=== PATIENT | male | born 1970 | race Caucasian/White ===

== ENCOUNTER 2020-12-28 08:38 | Inpatient (IN) | payer BC, SELFPAY ==
[2020-12-28] VITALS (35 sets, daily range): BP systolic 86–124; BP diastolic 57–86; PULSE 46–81; RESP 6–20; TEMP 36.8; O2SAT 94–98; BMI 22.4
--- NOTE | 2020-12-28 08:42 | ED_ITS ---
HPI - General Adult General: Chief complaint: Arrhythmia/Palpitations Stated complaint: POSSIBLE STEMI Time Seen by Provider: 12/28/20 08:41 History of Present Illness: HPI narrative: CC: Chest Pain HPI: This is a [50] yo patient hx of HTN, smoking, hyperthyroidism BIBA to the ED w/ acute onset crushing substernal chest pain x 2 hours w En route, HDS, field ECG showed inferior STEMI. Onset: 2 hrs ago Duration: ongoing for the last 2 hrs Location: home Severity: severe Review of Systems Narrative: Constitutional: No fever, no chills. HEENT: No vision changes, no sore throat. CV: +chest pain, no palpitations. PULM: No cough, -dyspnea. GI: No abdominal pain, +N/+V/D. : No dysuria, no frequency, no hematuria. MSKEL: No arthralgias, no edema. SKIN: No new rashes, no lesions. NEURO: No headache, no focal weakness. HEME: No easy bleeding or bruising. PSYCH: No change in mood or affect. PFS ED PFSH: Medical History CLL (chronic lymphocytic leukemia) Hypertension Hypothyroidism Family History Other CAD (coronary artery disease) Social History Smoking and tobacco status: current every day smoker Physical Exam Narrative: EXAM NARRATIVE: Head: Atraumatic, normocephalic Eyes: PERRL, EOMI, conjunctiva without injection ENT: Throat without erythema, lesions or exudate, MMM NECK: Supple, trachea midline, no JVD LUNGS: LCTA CV: RRR, S1,S2, no murmurs, rubs, gallops. 2+ peripheral pulses in UEs ABDOMEN: Soft, nontender, nondistended, BS x4, no rigidity, no guarding, no rebound EXTREMITY: Normal ROM, no pitting edema, no calf tenderness to palpation SKIN: No rash or erythema NEURO: Awake and alert. No focal motor deficits. PSYCH: Normal mood and affect. Course Vital Signs: Vital signs: Vital Signs Temperature 98.5 F 12/29/20 04:34 Pulse Rate 56 L 12/29/20 05:15 Respiratory Rate 18 12/29/20 04:34 Blood Pressure 100/67 12/29/20 04:34 Pulse Oximetry 97 12/28/20 17:53 MDM - General Adult MDM Narrative: Medical decision making narrative: [50]yo pt w/ extensive cardiac hx BIBA for active chest pain with field EKG for STEMI in the inferiorposterior distributions. Pt received ASA 325mg and 3 dose of nitro SL en route. Repeat ECG in the ED showed ARTUR in the 2/3/aVF distributions with reciprocal changes. Patient was otherwise in their normal state of health before this chest pain rapidly ensued. Given history and exam I have a lower suspicion for TAA or dissection because no tearing chest pain, bounding bilateral UE pulses, and patient is neurologically intact. I have no suspicion for PE or dissection because hx and exam are more consistent with STEMI and no signs of right axis with ARTUR findings on ECG. Pending: CBC, BMP, troponin, PT/INR. Will obtain repeat EKGs until clinical laboratory service teacher, CXR. [8:42am] Initial ECG showed ARTUR in the distribution of 2/3/avF with reciprocal changes. [8:45am] Case and EKG discussed with Cardiology provider Dr. Brown who agrees that this is a STEMI. Intervention: S/p ASA and 3 SL nitro en route, 600mg plavix, and heparin bolus 60U/kg followed by 12U/kg/h gtt. [8:45am] Cardiology team evaluated the patient at bedside with plans for emergent PCI. Patient is NPO Disposition: Device Test Engineer Lab Data: Labs: Lab Results 12/28/20 12/28/20 12/28/20 Range/Units 08:45 08:45 08:45 WBC 36.5 H* (4.0-10.0) 10^3/ uL RBC 4.76 (4.1-5.3) 10^6/u L Hgb 15.0 (11.7-16.6) g/dL Hct 43.1 (42.0-52.0) % MCV 90.5 (80-94) fl MCH 31.5 (28.0-34.0) pg MCHC 34.8 (30.0-36.0) g/dL RDW 13.2 (12.1-15.1) % Plt Count 173 (130-400) 10^3/c mm MPV 9.8 (7.4-10.4) fL Neut % (Auto) 17.2 % Lymph % (Auto) 80.7 % Holmes % (Auto) 1.4 % Eos % (Auto) 0.1 % Baso % (Auto) 0.3 % Neut # (Auto) 6.28 (1.8-7.7) 10^3/u L Lymph # (Auto) 29.5 H (0.8-4.8) 10^3/u L Holmes # (Auto) 0.5 (0.2-0.9) 10^3/u L Eos # (Auto) 0.1 (0.0-0.8) 10^3/u L Baso # (Auto) 0.1 (0.0-0.1) 10^3/u L Nucleated RBC % (a uto) 0 % Nucleated RBCs # 0.0 /100WBC PT 12.40 (12.1-14.9) SECO NDS INR 0.89 (0.8-1.2) APTT 26.8 (23.9-36.7) SECO NDS Sodium 140 (136-145) mmol/L Potassium 3.7 (3.5-5.1) mmol/L Chloride 102 (98-107) mmol/L Carbon Dioxide 30 H (22-29) mmol/L Anion Gap 11.7 (5-19) BUN 9 (6-20) mg/dL Creatinine 1.0 (0.7-1.2) mg/dL GFR Calculation 78.5 L (90-130) mL/min Glucose 129 H (65-115) mg/dL Calculated Osmolal ity 290 (285-295) mOsm/k g Calcium 9.0 (8.5-10.5) mg/dL Troponin T Baselin e (0-15) ng/L 12/28/20 12/28/20 Range/Units 08:45 16:27 WBC 23.8 H (4.0-10.0) 10^3/ uL RBC 4.28 (4.1-5.3) 10^6/u L Hgb 13.6 (11.7-16.6) g/dL Hct 38.8 L (42.0-52.0) % MCV 90.7 (80-94) fl MCH 31.8 (28.0-34.0) pg MCHC 35.1 (30.0-36.0) g/dL RDW 13.4 (12.1-15.1) % Plt Count 144 (130-400) 10^3/c mm MPV 9.9 (7.4-10.4) fL Neut % (Auto) 18.9 % Lymph % (Auto) 77.1 % Holmes % (Auto) 3.1 % Eos % (Auto) 0.3 % Baso % (Auto) 0.4 % Neut # (Auto) 4.55 (1.8-7.7) 10^3/u L Lymph # (Auto) 18.4 H (0.8-4.8) 10^3/u L Holmes # (Auto) 0.7 (0.2-0.9) 10^3/u L Eos # (Auto) 0.1 (0.0-0.8) 10^3/u L Baso # (Auto) 0.1 (0.0-0.1) 10^3/u L Nucleated RBC % (a uto) 0 % Nucleated RBCs # 0.0 /100WBC PT (12.1-14.9) SECO NDS INR (0.8-1.2) APTT (23.9-36.7) SECO NDS Sodium (136-145) mmol/L Potassium (3.5-5.1) mmol/L Chloride (98-107) mmol/L Carbon Dioxide (22-29) mmol/L Anion Gap (5-19) BUN (6-20) mg/dL Creatinine (0.7-1.2) mg/dL GFR Calculation (90-130) mL/min Glucose (65-115) mg/dL Calculated Osmolal ity (285-295) mOsm/k g Calcium (8.5-10.5) mg/dL Troponin T Baselin e 15 (0-15) ng/L Discharge Plan Discharge Patient Disposition: Admitted As Inpatient Admit Provider: Curt Brown Clinical Impression: ST elevation (STEMI) myocardial infarction Condition: Stable Coding Level of Care Code ED Management Consulting for Ramesh Tesfaye
--- NOTE | 2020-12-28 08:45 | ECG_ITS ---
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 Measurements Intervals [place] Rate: 54 P: 61 MD: 188 QRS: 32 QRSD: 89 T: 82 QT: 395 QTc: 377 Interpretive Statements SINUS BRADYCARDIA WITH SINUS ARRHYTHMIA ST ELEVATION, CONSIDER INFERIOR INJURY [MARKED ST ELEVATION W/O NORMALLY INFLECTED T-WAVE IN II/aVF] ACUTE MD No previous ECG available for comparison Electronically Signed On 12-28-2020 13:06:04 CDT by Benedicto Molina M.D. [id number]
[2020-12-28] MEDS: clopidogrel 300 mg Tablet 600 MG PO (08:52)
[2020-12-28] MEDS: heparin 5,000 unit/mL INJ 1 mL 4000 UNIT IVP (08:52)
--- NOTE | 2020-12-28 09:00 | XACV_ITS ---
Ht: 183 cm Wt: 75 kg BSA: 1.95 m2 Gender: Male : 1970 Any Known Allergies: No known allergies Exam Priority: Routine Procedure(s): Procedure Description: Diagnostic procedure Procedure Description: PCI procedure Procedure Description: Drug Eluting Coronary Stent Procedure Description: PTCA Procedure Description: Coronary Angiography Diagnostic Cath Status: Emergency Diagnostic Findings * Left Anterior Descending has mild diffuse luminal irregularities. No obstructive disease is seen. * Mid Right Coronary Artery to Distal Right Coronary Artery: total thrombotic occlusion, ANTHONY: 0 flow. This is the culprit vessel for acute ST elevation RI. * 1st Diagonal: obstructive 70% stenosis, ANTHONY: 3 flow. Small sized vessel.. * Left Main has no disease. * Circumflex has no disease. * Coronary angiography shows right dominance. PCI Status: Emergency PCI Indication: Immediate PCI for STEMI Interventional Findings * Procedure detail: Procedure details: We engaged RCA with a JR4 guide catheter. IV heparin was administered to maintain an ACT above 250 seconds. A 0.014 run-through guidewire was used to cross the stenosis and was placed in PLV branch. 2.75 x 12 mm semicompliant balloon was used to predilate the stenosis in the mid RCA. This was followed by placement of 4.0 x 30 mm resolute [place] drug-eluting stent. At the distal edge of the stent, there was still some haziness.we placed a second stent that was 3.5 x 12 mm resolute [place] stent overlapping with the first stent. At this time final angiogram was performed that showed excellent stent expansion, ANTHONY-3 flow and no residual stenosis. Guidewire and guide catheter were removed. Patient left the Disability Advocate in a stable condition. . * Mid Right Coronary Artery to Distal Right Coronary Artery: 100% stenosis treated with a AB TREK 2.75X12 RX BALLOON, MDT R KORINA 4.0X30 CAR, and MDT R KORINA 3.5X12 CAR. 0% residual stenosis, ANTHONY: 3 flow. Conclusions 1. There is total thrombotic occlusion of mid RCA status post successful revascularization with CAR x2.. 2. Diagonal artery has 70% stenosis however it is a small sized vessel that will be managed medically. 3. Mid Right Coronary Artery to Distal Right Coronary Artery was treated with a Balloon, Drug Eluting Stent, and Drug Eluting Stent. Recommendations * Transferred to CSU. * Aspirin and Plavix for at least 1 year. * High intensity statin therapy. * Order echocardiogram. * Order beta-natasha and lisinopril. * Outpatient cardiology follow-up in 4 weeks. Interventional RX Recommendation: PCI w/o planned CABG Diagnostic RX Recommendation: PCI w/o planned CABG Anticoagulation: Heparin Pressures Phase:Rest AO : 117 / 69 ( 88 ) @ 8:08:00 AM 102 / 68 ( 82 ) @ 8:16:00 AM 97 / 61 ( 76 ) @ 8:17:00 AM 71 / 45 ( 59 ) @ 8:19:00 AM 74 / 57 ( 65 ) @ 8:20:00 AM 63 / 42 ( 56 ) @ 8:24:00 AM 78 / 59 ( 68 ) @ 8:24:00 AM 66 / 44 ( 53 ) @ 8:30:00 AM Clinical Evaluation EBL: 5mL-10mL Procedural Details Pre-Procedure Time Out. Identified patient by full name and date of as verbalized by the patient/guarantor. Does the consent match the physician's order: N/A Emergent. Accurate & Complete Informed Consent: N/A Emergent. Inpatient/Outpatient History & Physical on Chart: N/A Emergent. If H&P is completed, is and addenduem needed: N/A Emergent; If yes, is the addendum complete: N/A Emergent. Visualize and Verify Site with Patient/Guarantor: N/A. Relevant Radiology Images available: N/A Emergent. Pre-op teaching completed and patient verbalized understanding. The risks, benefits, and alternatives of sedation and/or procedure were discussed by physician. The patient agrees to continue. Procedure started. [facility] Clinical Fraility Score: 3: Managing Well. Disability Advocate Indications: ACS <= 24 hours. Chest Pain Symptom Assessment: Typical Angina Symptoms. Correct patient, site and procedure confirmed by cath team. Current diagnosis: STEMI. PERRLA. Strong, equal hand internal control analyst bilaterally. Lungs clear x 5 lobes. IV Site on Arrival: 18 gauge in the left anticubital. IV Fluids: 0.9% NaCl at KVO. 0 mL infused prior to laboratory apparatus glass grinder. Oxygen started at 2liters/min via nasal canula. right groin was prepped with chloroprep then draped in the usual sterile fashion. right radial was prepped with chloroprep then draped in the usual sterile fashion. Physician notified. Baseline sample Acquired. HR: 62 BPM. Physician arrived. Physician scrubbed in. Immediate Pre-Procedure Time Out. Correct Patient: N/A Emergent; Correct Procedure: N/A Emergent; Correct Site: N/A Emergent; Correct Patient Position: N/A Emergent; Correct Supplies: N/A Emergent; Dried Flammable Prep: N/A Emergent; Blood Products Available: N/A Emergent;. Lidocaine 1% infiltrated to the right radial. Arterial access obtained. A 5 indonesian TIG catheter in over wire. Current Diagnosis : STEMI. Multiple views taken of left coronary artery. Catheter redirected to the RCA. Multiple views taken of right coronary artery. Catheter removed over the exchange wire. AP Pads placed on the patient. PCI Indication: STEMI. 6 indonesian JR 4 guide catheter was inserted over the wire. Runthrough guidewire was advanced through the guide catheter to lesion in the mid RCA. Inflation number : 1 A AB TREK 2.75X12 RX BALLOON was prepped and advanced across the Mid RCA , then inflated to 12 ESTELLE for 0:21 seconds. Inflation number: 2 The AB TREK 2.75X12 RX BALLOON was reinflated across the Mid RCA, to 12 ESTELLE for 0:16 seconds. Balloon out. Inflation Number : 3 A MILTON Cohen KORINA 4.0X30 CAR -Lot Number# _[id number] Exp: 05/15/2021 was prepped and advanced across the Mid RCA. The stent was deployed at 12 ESTELLE for 0:15 seconds. Stent balloon out over wire. Results checked. Wire out. PCI Indication: STEMI. PCI Indication : Immediate PCI for STEMI. Runthrough guidewire was advanced through the guide catheter to lesion in the mid RCA. Inflation Number : 4 A MILTON HUI 3.5X12 CAR -Lot Number# _[id number] EXP: 03/30/2022 was prepped and advanced across the Mid RCA. The stent was deployed at 12 ESTELLE for 0:20 seconds. Inflation number: 5 The stent balloon was then re-inflated across the Mid RCA to 14 ESTELLE for 0:14 seconds. Stent balloon out over wire. Results checked. Wire out. Guide catheter out. TR band placed. Hemostasis obtained. A TR Band was successful obtaining hemostatsis at the Right Radial artery insertion site. Post Procedure: Pulses reassessed and unchanged. PERRLA. Strong, equal hand internal control analyst bilaterally. No VTE prophylaxis required. Medication's Wasted: Lidocaine 1% = 18 mL. Medication's Wasted: Other = Versed 0.5 mg. Medication's Wasted: Other = Fentanyl 25 mcg. Medication's Wasted: Heparin = 1000 units. Total IV fluids: 325 mL. Contrast type used: Omnipaque 300 mgI/mL, 500 mL bottle. Post-op diagnosis: CAD. Complications: None. Estimated blood loss: 5mL-10mL. Procedure completed. Patient transferred by wheelchair to CPRU. Vital chart was stopped. Access Site Site: Right Radial artery Sheath Size: 6 Fr Hemostasis Method: TR Band Hemostasis Success: Successful Procedure Medications Start: 9:06 AM Stop: 9:06 AM Medication: Versed Amount: 1 mg Route: I.V. Start: 9:06 AM Stop: 9:06 AM Medication: Fentanyl Amount: 50 mcg Route: I.V. Start: 9:06 AM Stop: 9:06 AM Medication: 0.9% Saline Amount: 250 ml Route: I.V. bolus Start: 9:07 AM Stop: 9:07 AM Medication: Heparin Amount: 5000 units Route: I.V. Start: 9:14 AM Stop: 9:14 AM Medication: Aggrastat 12.5 mg/250 mL Amount: 38 ml Route: I.V. bolus Start: 9:14 AM Stop: 9:14 AM Medication: Aggrastat 12.5 mg/250 mL Amount: 13.7 ml/hr Route: I.V. drip Start: 9:21 AM Stop: 9:21 AM Medication: Versed Amount: 0.5 mg Route: I.V. Start: 9:24 AM Stop: 9:24 AM Medication: Fentanyl Amount: 25 mcg Route: I.V. Start: 9:29 AM Stop: 9:29 AM Medication: Levophed (norepinephrine) Amount: 4 mcg/min Route: I.V. drip Gregory, the attending physician, have reviewed and verified all procedure medications. Yes, all medications given per verbal order History/Risk Factors Hypertension: Yes Peripheral Arterial Disease (PAD): No Myocardial Infarction (RI): No Obesity: No Renal Disease: No Tobacco Use: Current/Recent(w/in 1 year) Prior Interventions PCI: No CABG: No Valve Surgery: No Report Signatures Finalized by Curt Brown MD on 01/05/2021 05:45 PM
[2020-12-28 09:01] LABS: Basophils # 0.1 10^3/uL (0.0-0.1); Basophils % 0.3 %; Eosinophils # 0.1 10^3/uL (0.0-0.8); Eosinophils % 0.1 %; Hematocrit 43.1 % (42.0-52.0); Lymphocytes # 29.5 10^3/uL (0.8-4.8); Lymphocytes % 80.7 %; Mean Corpuscular HGB Conc 34.8 g/dL (30.0-36.0); Mean Corpuscular Hemoglobin 31.5 pg (28.0-34.0); Mean Corpuscular Volume 90.5 fl (80-94); Mean Platelet Volume 9.8 fL (7.4-10.4); Monocytes # 0.5 10^3/uL (0.2-0.9); Monocytes % 1.4 %; Neutrophils # 6.28 10^3/uL (1.8-7.7); Neutrophils % 17.2 %; Nucleated Red Blood Cells % 0 %; Platelet Count 173 10^3/cmm (130-400); Red Blood Count 4.76 10^6/uL (4.1-5.3); Red Cell Distribution Width 13.2 % (12.1-15.1)
[2020-12-28 09:12] LABS: Anion Gap 11.7 (5-19); Blood Urea Nitrogen 9 mg/dL (6-20); Carbon Dioxide 30 mmol/L (22-29); Chloride 102 mmol/L (98-107); Glomerular Filtration Rate 78.5 mL/min (90-130); Glucose 129 mg/dL (65-115); INR 0.89 (0.8-1.2); Osmolality Calculated 290 mOsm/kg (285-295); Partial Thromboplastin Time 26.8 SECONDS (23.9-36.7); Potassium 3.7 mmol/L (3.5-5.1); Sodium 140 mmol/L (136-145)
[2020-12-28 09:14] LABS: Troponin(5th) Baseline 15 ng/L (0-15)
[2020-12-28 09:47] LABS: Slide Review Slide Review Perform; White Blood Count 36.5 10^3/uL (4.0-10.0)
--- NOTE | 2020-12-28 10:08 | PC.NURSE ---
Critical WBC Critical WBC of 36.[address] Brown at this time. Orders received to recheck CBC in 4 hours.
--- NOTE | 2020-12-28 10:25 | PM.HP ---
Providers/Chief Complaint Admitting Physician: Curt Brown MD Chief Complaint: POSSIBLE STEMI History of Present Illness Ludwin Red is a 50 year old male with past medical history of hypertension, hypothyroidism and CLL(not on treatment as his stable) presented with 2 hours of severe substernal crushing chest pain. It was radiating to the arms. His EKG showed ST elevations in the inferior leads with reciprocal changes lateral leads. Posterior wall involvement was also present. STEMI alert was called and patient was emergently taken to the [facility]. Coronary angiogram demonstrated total thrombotic occlusion of the mid RCA. It was a large vessel. He underwent successful revascularization with CAR x2. He has a small sized diagonal artery with significant 70 to 80% stenosis in it. Review of Systems Narrative: Constitutional: No fever, no chills. HEENT: No vision changes, no sore throat. Cardiovascular: Has chest pain, no shortness of breath PULM: No cough, -dyspnea. GI: No abdominal pain, +N/+V/D. : No dysuria, no frequency, no hematuria. MSKEL: No arthralgias, no edema. SKIN: No new rashes, no lesions. NEURO: No headache, no focal weakness. HEME: No easy bleeding or bruising. PSYCH: No change in mood or affect. Medications/Allergies Allergies Allergy/AdvReac Type Severity Reaction Status Date / Time No Known Allergies Allergy Verified 12/28/20 08:54 PFSH Acute PFSH: Medical History CLL (chronic lymphocytic leukemia) Hypertension Hypothyroidism Family History Other CAD (coronary artery disease) Social History Smoking and tobacco status: current every day smoker Vitals/I&O/Wt Last Vital Signs Temp 98.2 F 12/28/20 08:43 Pulse 81 12/28/20 10:15 Resp 15 12/28/20 10:15 BP 92/71 12/28/20 10:15 Pulse Ox 98 12/28/20 10:15 Weight last 48 hrs Weight 165 lb Physical Exam Narrative: EXAM NARRATIVE: GENERAL: Patient is alert, awake and oriented x3. [] NECK: No jugular vein distension. [] HEENT: No cyanosis. No icterus. No pallor. [] HEART: Regular S1 and S2. No murmur, rub or gallop. [] LUNGS: Clear to auscultate bilaterally. [] ABDOMEN: Soft, nontender and nondistended. Positive bowel sounds. No guarding, rebound or tenderness. [] CENTRAL NERVOUS SYSTEM: Grossly nonfocal. [] EXTREMITIES: Lower extremities with no edema bilaterally. Pulses palpable in the lower extremities, both dorsalis pedis and posterior tibial. [] Data : 12/28/20 08:45 12/28/20 08:45 A&P Assessment and plan (1) ST elevation (STEMI) myocardial infarction: Status: Acute (2) Hypertension: Status: Acute (3) Hypothyroidism: Status: Acute (4) CLL (chronic lymphocytic leukemia): Status: Acute Patient presented with inferior ST elevation SD with posterior involvement. Coronary angiogram revealed total occlusion of mid RCA. He underwent successful revascularization with CAR x2. He briefly required Levophed as well as hypotensive. Given IV fluids as well. Continue aspirin Plavix for at least 1 year. High intensity statin therapy. Beta-natasha and lisinopril. Patient has CLL and WBC count is 36,000. However patient says that his WBC count has stayed in 30,000 since her diagnosis 2 years ago but stable. Not on any treatment for that. Will start levothyroxine at his home dose of 100 mcg. Order echocardiogram. Attestations Medical Necessity Statement*: Care expected to cross 2 midnights. Patient has presented with acute inferior wall ST elevation SD and is status post revascularization of RCA with CAR x2. Coding Level of Care Code Acute Employee Development Specialist for Ramesh Tesfaye Diagnoses ST elevation (STEMI) myocardial infarction I21.3 Hypertension I10 Hypothyroidism E03.9 CLL (chronic lymphocytic leukemia) C91.10
--- NOTE | 2020-12-28 11:55 | PC.NURSE ---
TR band deflation started.
--- NOTE | 2020-12-28 12:18 | PC.NURSE ---
Patient ambulated himself to the bathroom. No dizziness, shortness of breath, or discomfort reported.
--- NOTE | 2020-12-28 12:25 | PC.NURSE ---
Patient given lunch.
--- NOTE | 2020-12-28 12:54 | PC.NURSE ---
TR band deflation complete. No swelling or bleeding noted. The patient tolerated the process well.
--- NOTE | 2020-12-28 14:45 | ECG_ITS ---
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 Measurements Intervals [place] Rate: 55 P: 55 VA: 174 QRS: -31 QRSD: 94 T: -15 QT: 413 QTc: 395 Interpretive Statements SINUS BRADYCARDIA LEFT AXIS DEVIATION [QRS AXIS < -30] INFERIOR MYOCARDIAL INFARCTION , OF INDETERMINATE AGE [40+ ms Q WAVE AND/OR ST/T ABNORMALITY IN II/aVF] Compared to ECG 12/28/2020 08:42:02 Left-axis deviation now present Sinus arrhythmia no longer present ST (T wave) deviation no longer present Myocardial infarct finding still present Electronically Signed On 12-28-2020 18:02:39 CDT by Curt Brown M.D. [id number]
--- NOTE | 2020-12-28 16:28 | PC.NURSE ---
Dr. Brown at bedside.
[2020-12-28 17:03] LABS: Basophils # 0.1 10^3/uL (0.0-0.1); Basophils % 0.4 %; Eosinophils # 0.1 10^3/uL (0.0-0.8); Eosinophils % 0.3 %; Hematocrit 38.8 % (42.0-52.0); Hemoglobin 13.6 g/dL (11.7-16.6); Lymphocytes # 18.4 10^3/uL (0.8-4.8); Lymphocytes % 77.1 %; Mean Corpuscular HGB Conc 35.1 g/dL (30.0-36.0); Mean Corpuscular Hemoglobin 31.8 pg (28.0-34.0); Mean Corpuscular Volume 90.7 fl (80-94); Mean Platelet Volume 9.9 fL (7.4-10.4); Monocytes # 0.7 10^3/uL (0.2-0.9); Monocytes % 3.1 %; Neutrophils # 4.55 10^3/uL (1.8-7.7); Neutrophils % 18.9 %; Nucleated Red Blood Cells % 0 %; Platelet Count 144 10^3/cmm (130-400); Red Blood Count 4.28 10^6/uL (4.1-5.3); Red Cell Distribution Width 13.4 % (12.1-15.1); White Blood Count 23.8 10^3/uL (4.0-10.0)
--- NOTE | 2020-12-28 18:19 | PC.NURSE ---
Received patient from cathode washer, VS WN. Patient denies any CP or SOB. R Radial site w/o hematoma, pulses palpable. Pt running SB with PVC's 54 on telemetry. Report called to [facility] CSU. Pt wheeled down to CSU in stable condition.
--- NOTE | 2020-12-28 18:38 | PC.NURSE ---
Admit Note Patient admitted to [facility] from [facility] via wheelchair. Covering service notified. Patient presents with post STEMI with PCI. Orders reviewed & will continue to monitor. Patient and/or sales utility representative oriented to environment, equipment, and informed of the following as found in the admission booklet: patient rights & responsibilities, visitor policy, hand and respiratory hygiene practice. Other education includes: site care, post heart cath and medications. Patient verbalized complete understanding. Telemetry placed. Patient post left heart cath with PCI via right radial artery. Dressing to site is c,d,i with no s/s of bleeding or hematoma formation observed. Patient denies pain or needs presently. No distress observed. .
[2020-12-28] MEDS: atorvastatin 40 mg Tablet 80 MG PO (20:22)
[2020-12-29] VITALS (10 sets, daily range): BP systolic 94–113; BP diastolic 59–74; PULSE 51–88; RESP 16–18; TEMP 36.5–36.9; O2SAT 94–95
[2020-12-29 04:33] LABS: Basophils # 0.1 10^3/uL (0.0-0.1); Basophils % 0.3 %; Eosinophils # 0.1 10^3/uL (0.0-0.8); Eosinophils % 0.2 %; Hematocrit 40.6 % (42.0-52.0); Hemoglobin 13.7 g/dL (11.7-16.6); Lymphocytes # 22.6 10^3/uL (0.8-4.8); Lymphocytes % 78.3 %; Mean Corpuscular HGB Conc 33.7 g/dL (30.0-36.0); Mean Corpuscular Hemoglobin 30.9 pg (28.0-34.0); Mean Corpuscular Volume 91.6 fl (80-94); Mean Platelet Volume 10.1 fL (7.4-10.4); Monocytes # 0.6 10^3/uL (0.2-0.9); Monocytes % 1.9 %; Neutrophils # 5.51 10^3/uL (1.8-7.7); Neutrophils % 19.1 %; Nucleated Red Blood Cells % 0 %; Platelet Count 139 10^3/cmm (130-400); Red Blood Count 4.43 10^6/uL (4.1-5.3); Red Cell Distribution Width 13.5 % (12.1-15.1); White Blood Count 28.8 10^3/uL (4.0-10.0)
[2020-12-29 05:28] LABS: Alanine Aminotransferase 20 U/L (0-41); Albumin Level 3.7 g/dL (3.5-5.2); Alkaline Phosphatase 119 IU/L (40-130); Anion Gap 12.3 (5-19); Aspartate Amino Transferase 90 U/L (0-40); Blood Urea Nitrogen 6 mg/dL (6-20); Calcium 8.8 mg/dL (8.5-10.5); Carbon Dioxide 27 mmol/L (22-29); Chloride 103 mmol/L (98-107); Globulin 2.2 g/dL (1.3-4.6); Glomerular Filtration Rate 101.5 mL/min (90-130); Glucose 91 mg/dL (65-115); Osmolality Calculated 285 mOsm/kg (285-295); Potassium 3.3 mmol/L (3.5-5.1); Sodium 139 mmol/L (136-145); Total Bilirubin 0.9 mg/dL (0.15-1.2); Total Protein 5.9 g/dL (6.6-8.7)
--- NOTE | 2020-12-29 06:07 | PC.NURSE ---
Shift Note Frequent safety and comfort rounds continue. Pt slept well throughout the night. Orders and/or nursing care completed as indicated. Patient monitored for response to intervention and treatment(s). Education provided includes fall prevention. Patient verbalized understanding. Will continue to monitor.
--- NOTE | 2020-12-29 07:41 | PC.NURSE ---
Report received from Dominique RUCKER. Patient is resting in bed watching TV, A & O, no C/O of pain or other needs at this time.
[2020-12-29] MEDS: metoprolol succinate ER (24 HR) 25 mg Tablet 12.5 MG PO (09:58)
[2020-12-29] MEDS: potassium chloride ER 20 mEq Tablet 40 MEQ PO (09:58)
[2020-12-29] MEDS: clopidogrel 75 mg Tablet PO (09:58)
[2020-12-29] MEDS: lisinopril 5 mg Tablet PO (09:58)
[2020-12-29] MEDS: aspirin 81 mg EC Tablet PO (09:58)
--- NOTE | 2020-12-29 12:58 | P.PN_ITS ---
Subjective Subjective: Interval history: Patient is overall doing well. Denies any recurrence of chest pain, shortness of breath or palpitations. His telemetry showed brief run of nonsustained VT. Is tolerating his medications well. Labs are stable. Vitals/I&O/Wt Last Vital Signs Temp 98 F 12/29/20 07:25 Pulse 51 L 12/29/20 07:25 Resp 18 12/29/20 07:25 BP 109/74 12/29/20 07:25 Pulse Ox 94 12/29/20 07:25 12/28/20 12/29/20 12/29/20 22:59 06:59 14:59 Intake Total 120 / 120 Balance 120 / 120 Weight last 48 hrs Weight 165 lb Physical Exam Narrative: EXAM NARRATIVE: GENERAL: Patient is alert, awake and oriented x3. [] NECK: No jugular vein distension. [] HEENT: No cyanosis. No icterus. No pallor. [] HEART: Regular S1 and S2. No murmur, rub or gallop. [] LUNGS: Clear to auscultate bilaterally. [] ABDOMEN: Soft, nontender and nondistended. Positive bowel sounds. No guarding, rebound or tenderness. [] CENTRAL NERVOUS SYSTEM: Grossly nonfocal. [] EXTREMITIES: Lower extremities with no edema bilaterally. Pulses palpable in the lower extremities, both dorsalis pedis and posterior tibial. [] Data : 12/29/20 03:50 12/29/20 03:50 A&P Assessment and plan (1) ST elevation (STEMI) myocardial infarction: Status: Acute (2) Hypertension: Status: Acute (3) Hypothyroidism: Status: Acute (4) CLL (chronic lymphocytic leukemia): Status: Acute Patient presented with inferior ST elevation MS with posterior involvement. Coronary angiogram revealed total occlusion of mid RCA. He u nderwent successful revascularization with CAR x2. He briefly required Levophed as well as hypotensive. Given IV fluids as well. Potassium level was low today and replaced. Echocardiogram shows a normal LV systolic function with mild hypokinesis of inferior and inferolateral garcia. Continue aspirin Plavix for at least 1 year. High intensity statin therapy. Beta-natasha and lisinopril. Patient has CLL and WBC count is elevated. However he says this is his baseline WBC count. Will start levothyroxine at his home dose of 100 mcg. Attestations Medical Necessity Statement*: Care expected to cross 2 midnights. Patient had presented with acute ST elevation MS and underwent successful revascularization of RCA with CAR x2. Coding Level of Care Code Acute Hospice Case Manager for Ramesh Tesfaye Diagnoses ST elevation (STEMI) myocardial infarction I21.3 Hypertension I10 Hypothyroidism E03.9 CLL (chronic lymphocytic leukemia) C91.10
--- NOTE | 2020-12-29 18:40 | USCV_ITS ---
Ludwin Red Age: 50 Gender: M : 1970 Exam Date: 12/29/2020 09:21 Ordering Phys: Curt Brown M.D ([email or web address]) Technologist: Belen Horton Exam Location: [facility] – [place], [place] Indication: NSTEMI BP: 109 / 74 HR: 63 Rhythm: Sinus Technical Quality: Adequate MEASUREMENTS (Male / Female) Normal Values 2D ECHO LV Diastolic Diameter PLAX 4.3 cm 4.2 - 5.9 / 3.9 - 5.3 cm LV Systolic Diameter PLAX 3.6 cm LV Chamber Size 4.3 cm IVS Diastolic Thickness 1.3 cm 0.6 - 1.0 / 0.6 - 0.9 cm IVS Systolic Thickness 1.3 cm LVPW Diastolic Thickness 0.9 cm 0.6 - 1.0 / 0.6 - 0.9 cm LVPW Systolic Thickness 0.9 cm RV Chamber Size 3.0 cm LVOT Diameter 2.0 cm LV Ejection Fraction 2D Teich 34.4 % LV Ejection Fraction MOD 2C 47.0 % LV Ejection Fraction 2C AL 47.3 % LA Diameter 2.8 cm LA Width 3.0 cm LA Height 4.8 cm RA Width 3.0 cm RA Height 4.3 cm Aorta at Sinotubular Diameter 2.6 cm M-MODE LV Diastolic Diameter MM 4.6 cm 4.2 - 5.9 / 3.9 - 5.3 cm LV Systolic Diameter MM 3.5 cm LV Ejection Fraction MM Teich 47.1 % IVS Diastolic Thickness MM 1.2 cm 0.6 - 1.0 / 0.6 - 0.9 cm IVS Systolic Thickness MM 1.2 cm LVPW Diastolic Thickness MM 1.5 cm 0.6 - 1.0 / 0.6 - 0.9 cm LVPW Systolic Thickness MM 1.5 cm RV Diastolic Diameter MM 1.0 cm Aortic Annulus Diameter 3.8 cm LA Ao Ratio MM 0.9 MV E Point Septal Separation 0.8 cm DOPPLER AV Peak Velocity 108.0 cm/s LVOT Peak Velocity 86.0 cm/s AV Area Cont Eq vti 2.5 cm squared AV Area Cont Eq pk 2.6 cm squared MV Area PHT 3.3 cm squared Mitral E to A Ratio 1.2 MV E' Velocity 40.5 cm/s Mitral E to MV E' Ratio 8.8 Mitral E to LV E' Lateral Ratio 8.1 Mitral E to LV E' Septal Ratio 9.9 TV Peak E Velocity 59.0 cm/s Right Atrial Pressure 8.0 mmHg FINDINGS Left Ventricle Normal left ventricular size. LV systolic function is normal with EF of 50-55%. Mild hypokinesis of inferior and inferolateral garcia. Normal diastolic filling pattern. Right Ventricle The right ventricle is normal in size and function. Right Atrium The right atrium is normal in size. RA pressure is 5-10mmHg Left Atrium The left atrium is normal in size. Mitral Valve Structurally normal mitral valve without significant stenosis or prolapse. There is trace mitral regurgitation. Aortic Valve Structurally normal aortic valve without significant sclerosis or stenosis. There is no aortic regurgitation. Tricuspid Valve Structurally normal tricuspid valve without significant stenosis or regurgitation. Insufficient TR jet to calculate RVSP Pulmonic Valve Structurally normal pulmonic valve without significant stenosis. There is no pulmonic regurgitation. Pericardium Normal pericardium without effusion. Aorta Normal ascending aorta dimension. CONCLUSIONS LV systolic function is normal with EF of 50-55%. Mild hypokinesis of inferior and inferolateral garcia. Diastolic function is normal Trace mitral regurgitation No comparison studies are available Curt Brown MD (Electronically Signed) Final Date: 29 December 2020 10:48 S
--- NOTE | 2020-12-29 19:22 | PC.NURSE ---
Shift Note Frequent safety and comfort rounds continue. Orders and/or nursing care completed as indicated. Patient monitored for response to intervention and treatment(s). Education provided includes oxygen safety, medication compliance, incision care. Patient and/or door to door sales representative verbalizes understanding. Will continue to monitor.
[2020-12-29] MEDS: atorvastatin 40 mg Tablet 80 MG PO (20:12)
[2020-12-29] MEDS: levothyroxine 100 mcg Tablet PO (20:39)
[2020-12-30] VITALS: BP 98/66; PULSE 59; RESP 18; TEMP 36.5; O2SAT 95
[2020-12-30 04:00] VITALS: BP 96/76; PULSE 64; RESP 18; TEMP 36.8; O2SAT 95
[2020-12-30 05:03] LABS: Anion Gap 10.3 (5-19); Blood Urea Nitrogen 10 mg/dL (6-20); Calcium 8.6 mg/dL (8.5-10.5); Carbon Dioxide 28 mmol/L (22-29); Chloride 104 mmol/L (98-107); Glomerular Filtration Rate 88.6 mL/min (90-130); Glucose 92 mg/dL (65-115); Osmolality Calculated 287 mOsm/kg (285-295); Potassium 3.3 mmol/L (3.5-5.1); Sodium 139 mmol/L (136-145)
[2020-12-30 06:00] VITALS: PULSE 64
--- NOTE | 2020-12-30 07:47 | PC.NURSE ---
Report received from Lacie RUCKER. Patient is A & O, sitting up in bed talking on the phone. Patient has no C/O of pain or other needs at this time. Nurse will continue to monitor.
[2020-12-30 08:00] VITALS: BP 107/68; PULSE 76; RESP 18; TEMP 36.7
[2020-12-30] MEDS: aspirin 81 mg EC Tablet PO (08:52)
[2020-12-30] MEDS: lisinopril 5 mg Tablet PO (08:52)
[2020-12-30] MEDS: clopidogrel 75 mg Tablet PO (08:52)
[2020-12-30] MEDS: metoprolol succinate ER (24 HR) 25 mg Tablet 12.5 MG PO (08:52)
--- NOTE | 2020-12-30 09:48 | P.DS_ITS ---
Discharge Providers Date of Admission: 12/28/20 17:00 Date of Discharge: December 30, 2020 Attending Provider at Admission: Curt Brown M.D Attending Provider at Discharge: Curt Brown M.D Diagnoses at Discharge Discharge Diagnosis (1) ST elevation (STEMI) myocardial infarction: (2) Hypertension: Status: Acute (3) Hypothyroidism: Status: Acute (4) CLL (chronic lymphocytic leukemia): Status: Acute Reason for Visit Reason for Visit: STEMI Brief History: 50 year old male with past medical history of hypertension, hypothyroidism and CLL(not on treatment as his stable) presented with 2 hours of severe substernal crushing chest pain. It was radiat ing to the arms. His EKG showed ST elevations in the inferior leads with reciprocal changes lateral leads. Posterior wall involvement was also present. STEMI alert was called and patient was emergently taken to the Computer Programmer Chief. Hospital Course Hospital Course 50 year old male with past medical history of hypertension, hypothyroidism and CLL(not on treatment as his stable) presented with 2 hours of severe substernal crushing chest pain. It was radiating to the arms. His EKG showed ST elevations in the inferior leads with reciprocal changes lateral leads. Posterior wall involvement was also present. STEMI alert was called and patient was emergently taken to the Computer Programmer Chief. Coronary angiogram demonstrated total th rombotic occlusion of the mid RCA. It was a large vessel. He underwent successful revascularization with CAR x2. He has a small sized diagonal artery with significant 70 to 80% stenosis in it. Echocardiogram revealed normal LV systolic function. Mild hypokinesis of inferior and inferolateral wall was noted. Patient was stable during hospital stay. He was discharged in a stable condition. Physical Exam Narrative: EXAM NARRATIVE: GENERAL: Patient is alert, awake and oriented x3. [] NECK: No jugular vein distension. [] HEENT: No cyanosis. No icterus. No pallor. [] HEART: Regular S1 and S2. No murmur, rub or gallop. [] LUNGS: Clear to auscultate bilaterally. [] ABDOMEN: Soft, nontender and nondistended. Positive bowel sounds. No guarding, rebound or tenderness. [] CENTRAL NERVOUS SYSTEM: Grossly nonfocal. [] EXTREMITIES: Lower extremities with no edema bilaterally. Pulses palpable in the lower extremities, both dorsalis pedis and posterior tibial. [] Discharge Data Data Completed and Pending: Completed Studies During Hospitalization Category Date Time Status CV. echo complete * [id number] Routine Ultrasound 12/29/20 18:40 Completed Pending at discharge Category Date Time Status MUSICAL INSTRUMENT SUPERVISOR request for service Routin e Exams 12/28/20 09:00 Taken Labs from last 24 hours 12/30/20 03:42 Sodium 139 Potassium 3.3 L Chloride 104 Carbon Dioxide 28 Anion Gap 10.3 BUN 10 Creatinine 0.9 GFR Calculation 88.6 L Glucose 92 Calculated Osmolal ity 287 Calcium 8.6 Vitals: Last Vital Signs Temp 98.1 F 12/30/20 08:00 Pulse 76 12/30/20 08:00 Resp 18 12/30/20 08:00 BP 107/68 12/30/20 08:00 Pulse Ox 95 12/30/20 04:00 Discharge Plan Discharge Patient Disposition: Home Condition: Stable Prescriptions: New atorvastatin 40 mg Tablet 80 mg PO BEDTIME Qty: 90 RF: 3 clopidogrel 75 mg Tablet 75 mg PO DAILY Qty: 90 RF: 3 aspirin 81 mg Tablet,Delayed Release (Dr/Ec) 81 mg PO DAILY Qty: 90 RF: 3 nitroglycerin 0.4 mg Tablet, Sublingual 0.4 mg sublingual Q5M PRN (Reason: Chest Pain) Qty: 30 RF: 1 lisinopril 5 mg Tablet 5 mg PO DAILY Qty: 90 RF: 3 metoprolol succinate 25 mg Tablet Extended Release 24 Hr 12.5 mg PO DAILY Qty: 120 RF: 3 Continued Euthyrox 100 mcg PO DAILY RF: 0 Discontinued triamterene-hydrochlorothiazid 37.5-25 mg Capsule 1 cap PO DAILY RF: 0 Discharge Orders: Discharge Order (Routine); Ordered 12/30/20 Ordered By: Curt Brown Referrals: Curt Brown M.D [Physician] - 1 month ([facility] will be calling to berenice a cardiology followup with Dr. Brown to be seen in 1 month. If you don't hear from them by Thursday Afternoon, please give them a call. Thank you) Margarita Nugent FNP [Nurse Practitioner] - 7-10 days ([facility] will be calling to berenice a post procedure followup with JOSE Gonzalez to be seen in 7 to 10 days. If you don't hear from them by Thursday Afternoon, please give them a call. Thank you) Discharge Diet: Cardiac Discharge Activity: Increase activity as tolerated Patient Instructions: Metoprolol (By mouth), Nitroglycerin (By mouth), Lisinopril (By mouth), Aspirin (By mouth), Atorvastatin (By mouth), Clopidogrel (By mouth), Right Heart Catheterization (DC), Coronary Angioplasty (DC), Chest Pain Stoplight, Opioid Safety Activity Restrictions/Additional Instructions: Please do not lift more than 5 pounds of weight for the next 5 days Discharge Attestations Time Spent in Discharge Care*: greater than 30 min Quality Metrics Clinical Quality Measures During this hospital stay, did patient experience: AMI Clinical Trial Participant: No Contraindication to aspirin (AMI): Aspirin given Contraindication to statin: Statin prescribed and None Coding Level of Care Code Acute Chg FW DC note Diagnoses ST elevation (STEMI) myocardial infarction I21.3 Hypertension I10 Hypothyroidism E03.9 CLL (chronic lymphocytic leukemia) C91.10
[2020-12-30] MEDS: potassium chloride ER 20 mEq Tablet 40 MEQ PO (10:35)
--- NOTE | 2020-12-30 10:44 | PC.NURSE ---
Discharge Note Patient discharged to home via private vehicle accompanied by . Discharge instructions reviewed with patient and/or insurance service representative. Mobile pharmacy medications and/or prescriptions provided. Belongings/home medications returned. Education provided for the importance of medication compliance, cardiac diet, return to work note provided and printed information provided on Cardiac Stoplight and procedures. Patient and verbalize understanding.
[2020-12-30 10:46] VITALS: BP 107/68; PULSE 76; RESP 18; TEMP 36.7
--- NOTE | 2020-12-31 18:33 | PC.RESP ---
SMOKING CESSATION INFORMATION SENT TO PATIENT.
== END 2020-12-30 10:54 | disposition home or self-care (01) | DRG 247 ==
LOC: ER 08:52 → CCL 08:53 → MEDSURG 17:35 → CSU 18:24
PROVIDERS: Admitting Provider Internal Medicine; Emergency Provider Emergency Medicine; Visit Provider Internal Medicine
DX: I21.3 ST elevation (STEMI) myocardial infarction of unspecified site (principal); C91.10 Chronic lymphocytic leukemia of B-cell type not having achieved remission; I10 Essential (primary) hypertension; E03.9 Hypothyroidism, unspecified; F17.200 Nicotine dependence, unspecified, uncomplicated; Z82.49 Family history of ischemic heart disease and other diseases of the circulatory system; Z79.82 Long term (current) use of aspirin; Z79.890 Hormone replacement therapy
CPT/HCPCS: 36415; 80048; 80053; 84484; 85025; 85610; 85730; 93005; 93306; 93454; 96374; 96375; 99285; C1725; C1769; C1874; C1887; C1894; C9600; J0461; J1644; J2250; J3010; J3246; J3490; J7030; Q9967

== ENCOUNTER → 2021-01-10 10:55 | Outpatient (BNVA) | payer BC, SELFPAY | PROVIDERS: PCP Internal Medicine; Visit Provider Nurse Practitioner Family | DX: I25.119 Atherosclerotic heart disease of native coronary artery with unspecified angina pectoris (principal); Z09 Encounter for follow-up examination after completed treatment for conditions other than malignant neoplasm | CPT/HCPCS: 80048 ==